=== PATIENT | male | born 1945 ===

== ENCOUNTER 2018-03-26 19:18 | Inpatient (IN) | payer MEDICARE ==
[~2018-03-26] VITALS: Ht 175.3 cm; Wt 70.2 kg
[~2018-03-26 19:18] MED LIST: ASCO1ER PO; Coumadin5 MG PO; DIAZ10 PO; DOC250 PO; DULO60 PO; FLAX PO; FURO40 PO; Garlic Oil1000 MG PO; LISI20 PO; LISI5 PO; MEDICAL MARIJUANA; MORP60ER PO; MULVITA PO; OXYACE10 PO; OXYC30; OXYC30ER PO; POTCHL10ER PO; PROB500 PO; RXOXYACE PO; WARF1 PO; WARF6 PO
[2018-03-26 21:16] LABS: BASOPHILS ABSOLUTE AUTO 0.07 K/mm3 (0.00-0.23); BASOPHILS PERCENT AUTO 1 % (0-2); EOSINOPHILS ABSOLUTE AUTO 0.22 K/mm3 (0.00-0.68); EOSINOPHILS PERCENT AUTO 3 % (0-6); Hemoglobin 13.8 g/dL (13.5-17.5); IMMATURE GRAN ABSOLUTE AUTO 0.02 K/mm3 (0.00-0.10); IMMATURE GRAN PERCENT AUTO 0 % (0-1); LYMPHOCYTES PERCENT AUTO 63 % (21-46); MONOCYTES ABSOLUTE AUTO 0.63 K/mm3 (0.16-1.47); MONOCYTES PERCENT AUTO 8 % (4-13); Mean Corpuscular HGB 31.4 pg (26.0-34.0); Mean Corpuscular HGB Conc 34.5 g/dL (31.5-36.5); Mean Corpuscular Volume 91 fL (80-100); Mean Platelet Volume 9.3 fL (9.1-12.4); NEUTROPHILS ABSOLUTE AUTO 2.04 K/mm3 (1.96-9.15); NEUTROPHILS PERCENT AUTO 25 % (41-73); NRBC ABSOLUTE 0.02 K/mm3 (0.00-0.02); NRBC Auto 0.3 /100 WBC (0.0-0.2); Platelet Count 162 K/mm3 (150-400); RDW Coefficient Variation 13.1 % (11.7-14.2); RDW Standard Deviation 44.6 fL (35.1-46.3); White Blood Cell Count 7.98 K/mm3 (4.00-11.30)
[2018-03-26 21:28] LABS: Bilirubin, Total 0.5 mg/dL (0.1-1.0); Bun/Creatinine Ratio 20.8 (12.0-20.0); Calcium, Blood 8.6 mg/dL (8.5-10.1); Creatinine, Blood 1.3 mg/dL (0.60-1.20); Globulin, Blood 4.1 g/dL (2.2-4.0); Potassium, Blood 3.4 mmol/L (3.5-5.5); Total Protein, Blood 8.1 g/dL (6.4-8.2)
[2018-03-26 21:33] LABS: International Normalized Ratio 3.13; Prothrombin Time Results 29.9 Sec (9.7-11.5)
--- NOTE | 2018-03-26 23:30 | NUR ---
PT ADMITTED FROM ED FOR L FEMUR FX. PT A&O X4. HYPERTENSIVE WITH BP AT 174/95. PAIN MANAGED WITH DILAUDID PER EMAR. ON 2 L OF O2. SATS STABLE ABOVE 95%. PT REPORTS BEING ON O2 AT HOME. NPO WITH NS RUNNING AT 75/HR.
--- NOTE | 2018-03-27 04:42 | NUR ---
PT CURRENTLY SLEEPING WITH BIPAP. HR DROPPING BETWEEN 40-45. PT BEING MONITORED FREQUENTLY. DR THOMAS NOTIFIED.
[2018-03-27 05:14] LABS: Hematocrit 37.6 % (37.0-53.0); Mean Corpuscular HGB 31.4 pg (26.0-34.0); Mean Corpuscular HGB Conc 34.6 g/dL (31.5-36.5); Mean Corpuscular Volume 91 fL (80-100); Mean Platelet Volume 8.9 fL (9.1-12.4); Platelet Count 130 K/mm3 (150-400); RDW Standard Deviation 42.8 fL (35.1-46.3); Red Blood Cell Count 4.14 M/mm3 (4.30-5.90); White Blood Cell Count 10.12 K/mm3 (4.00-11.30)
[2018-03-27 05:24] LABS: International Normalized Ratio 2.91
[2018-03-27 05:33] LABS: Bun/Creatinine Ratio 17.5 (12.0-20.0); Calcium, Blood 8.2 mg/dL (8.5-10.1); Creatinine, Blood 1.37 mg/dL (0.60-1.20); Potassium, Blood 4.3 mmol/L (3.5-5.5)
--- NOTE | 2018-03-27 11:25 | NUR ---
PATIENT TO ct VIA [facility]
--- NOTE | 2018-03-27 11:42 | NUR ---
RETURNED TO ROOM FROM ct
--- NOTE | 2018-03-27 16:44 | NUR ---
patient states he receives pain meds from dr odom for chronic pain. spoke with giovany at dr arellano and asked her to fax a list of patient meds.
[2018-03-27] MEDS ORDERED: Felodipine ER2.5 MG PO (17:23)
[2018-03-27] MEDS ORDERED: PROBIOTIC1 EAC1 PO (17:24)
[2018-03-27] MEDS ORDERED: COMBIVENT RESPIM4 GM (17:27)
[2018-03-27] MEDS ORDERED: ACET500 PO (17:28)
[2018-03-27] MEDS ORDERED: GLUCOSAMINE &1 EACH PO (17:29)
[2018-03-27] MEDS ORDERED: FEVERFEW EXTRACT1 GM PO ×2 (17:30→17:31)
[2018-03-27] MEDS ORDERED: OMEG1CAP30 PO (17:32)
[2018-03-27] MEDS ORDERED: Vitamin B-121000 MCG PO (17:33)
[2018-03-27] MEDS ORDERED: PROC5 PO (17:34)
--- NOTE | 2018-03-27 18:01 | NUR ---
PATIENT PAINUL THROUGHOUT SHIT. OBTAINED A LIST O PATIENTS MEDS ROM DR TREVA EUBANKS NOTIIED DR SPRING O NEW MED LIST. PATIENT ON BIPAP WHEN SLEEPING, CONT BIOX IN PLACE. PATIENT LEFT LE EXTERNALLY ROTATED, PEDAL PULSES INTACT. LET ELBOW RESING WITH SCANT BLOODY DRAINAGE KAR HEMPHILL RN
--- NOTE | 2018-03-27 18:21 | NUR ---
dr randall here to see patient
--- NOTE | 2018-03-27 19:49 | NUR ---
NURSING ENTERED ROOM AFTER PT YELLED, "A LITTLE HELP PLEASE!" WHEN ASKED WHY HE WAS YELLING HE STATED THAT HE NEEDED HIS URINAL EMPTIED. WHEN NURSING REITERATED THAT THIS DOES NOT CONSTITUE AN EMERGENCY AND TAT A SECOND URINAL WOULD BE PROVIDED FOR HIS USE HE STATED THAT HE UNDERSTOOD. WILL CONTINUE TO MONITOR.
--- NOTE | 2018-03-28 06:05 | NUR ---
LYING IN LOW FOWLERS WITH EYES CLOSED. PAIN IS MANAGED WITH CURRENT PAIN REGIEMEN. ABLE TO EXTEND TOME TO 1.5HRS CURRENTLY. REPOSITIONED Q2HRS, TOLERATING WELL. NO FURTHER CHANGES SINCE START OF SHIFT. SAFETY MEASURES IN PLACE. WILL GIVE HAND OFF TO ONCOMING SHIFT USING SBAR.
[2018-03-28 11:39] LABS: International Normalized Ratio 1.42; Prothrombin Time Results 14.6 Sec (9.7-11.5)
--- NOTE | 2018-03-28 11:42 | NUR ---
CONTACTED DR KAR HERNANDEZ WITH PT/INR RESULTS
--- NOTE | 2018-03-28 13:25 | NUR ---
TO OR PER BED
--- NOTE | 2018-03-28 13:29 | NUR ---
History, Chart, Medications and Allergies reviewed before start of procedure. Patient confirms NPO status and agrees with scheduled surgery.
--- NOTE | 2018-03-28 13:48 | NUR ---
Surgical site prepped with 2% Chlorhexidine cloth wipe.
--- NOTE | 2018-03-28 14:47 | NUR ---
03/28/18 1447 Doretha Delgado 0.5% BUPIVICAINE WITH EPI 1:200,000 USED. DOSING TO BE GIVEN AT END OF CASE. ANCEF [address] FIGUEROA AT 1356.
--- NOTE | 2018-03-28 16:38 | NUR ---
1630 returned to room let hip ressing dry an intact, patient able to move all extremities. patient reports pain t level 4/10
--- NOTE | 2018-03-28 17:46 | NUR ---
[address] henderson regarding patients elevated bp, new orders received
--- NOTE | 2018-03-28 18:12 | NUR ---
SHIFT SUMMARY PATIENT REPORTS LET HIP PAIN 06/14. HYDRALAZINE GIVEN OR ELEVATED BP. LEFT HIP DRESING DRY AND INTACT. PATIENT MOVES ALL EXTREMITIES, DENIES ANY NUMBNESS OR TINGLING O EXTREMITIES. PATIENT VOIDED CLEAR YELLOW URINE POST OP
--- NOTE | 2018-03-28 18:36 | NUR ---
BIOX 88% , OXYGEN INCREASED TO 4 LITERS, REQUESTED RESPIRATORY THERAPY PLACE PATIENT ON BIPAP
[2018-03-29 01:22] LABS: BASOPHILS ABSOLUTE AUTO 0.01 K/mm3 (0.00-0.23); BASOPHILS PERCENT AUTO 0 % (0-2); EOSINOPHILS ABSOLUTE AUTO 0.01 K/mm3 (0.00-0.68); EOSINOPHILS PERCENT AUTO 0 % (0-6); Hemoglobin 13.5 g/dL (13.5-17.5); IMMATURE GRAN ABSOLUTE AUTO 0.03 K/mm3 (0.00-0.10); IMMATURE GRAN PERCENT AUTO 0 % (0-1); LYMPHOCYTES ABSOLUTE AUTO 1.13 K/mm3 (0.84-5.20); LYMPHOCYTES PERCENT AUTO 9 % (21-46); MONOCYTES ABSOLUTE AUTO 0.97 K/mm3 (0.16-1.47); MONOCYTES PERCENT AUTO 8 % (4-13); Mean Corpuscular HGB 31.3 pg (26.0-34.0); Mean Corpuscular HGB Conc 35.5 g/dL (31.5-36.5); Mean Corpuscular Volume 88 fL (80-100); Mean Platelet Volume 9.1 fL (9.1-12.4); NEUTROPHILS ABSOLUTE AUTO 10.16 K/mm3 (1.96-9.15); NEUTROPHILS PERCENT AUTO 83 % (41-73); Platelet Count 111 K/mm3 (150-400); RDW Coefficient Variation 12.7 % (11.7-14.2); RDW Standard Deviation 41.2 fL (35.1-46.3); Red Blood Cell Count 4.32 M/mm3 (4.30-5.90); White Blood Cell Count 12.31 K/mm3 (4.00-11.30)
[2018-03-29 01:36] LABS: International Normalized Ratio 1.56; Prothrombin Time Results 15.9 Sec (9.7-11.5)
[2018-03-29 01:37] LABS: Anion Gap 9 mmol/L (6-16); Blood Urea Nitrogen 15 mg/dL (8-24); Bun/Creatinine Ratio 17.9 (12.0-20.0); CO2, Blood 30 mmol/L (21-32); Calcium, Blood 8.4 mg/dL (8.5-10.1); Chloride, Blood 90 mmol/L (98-108); Creatinine, Blood 0.84 mg/dL (0.60-1.20); Glomerular Filtration Rate >60 (60-); Glucose, Blood 145 mg/dL (70-99); Magnesium, Blood 1.6 mg/dL (1.6-2.4); Potassium, Blood 3.4 mmol/L (3.5-5.5); Sodium, Blood 129 mmol/L (136-145)
--- NOTE | 2018-03-29 06:28 | NUR ---
LYING IN LOW FOWLERS WITH EYES CLOSED. PAIN IS MANAGED WITH CURRENT PAIN REGIEMEN. ICE PLACED TO LEFT HIP AND CHANGED NEEDED THROUGHOUT SHIFT. NO FURTHER CHANGES SINCE START OF SHIFT. SAFETY MEASURES IN PLACE. WILL GIVE HAND OFF TO ONCOMING SHIFT USING SBAR.
--- NOTE | 2018-03-29 07:10 | NUR ---
recvd report from previous shift rn Tory, pt sleeping in bed, bed in lowest position, bed rails up, call light within reach
--- NOTE | 2018-03-29 17:17 | NUR ---
Pt is alert, oriented. Reports a pain level of 2/10, no anxiety, no shortness of breath. Reviewed purpose of POLST and advance directives. Supplied copies of both. He is very interested in hearing more about the forms, however, he requests time to rest at this time. Will return to pt's room tomorrow to discuss.
--- NOTE | 2018-03-29 18:26 | NUR ---
SHIFT SUMMARY: VSS, NO ACUTE CHANGES. PT REMAINED A/0 X 4, COOPERATIVE. PT WORKED WITH PHYSICAL THERAPY/OT X 2 TODAY, UP TO CHAIR FOR MEALS. PT ROUNDED ON BY JOSE MORFIN WILLIAMS THIS SHIFT. NEPHEW VISITED X 2 THIS SHIFT. PT NO N/V, URINE OUTPUT >500 ML THIS SHIFT. PT STATES HE DOES NOT LIKE THE HOSPITAL FOOD, EATS SMALL AMOUNTS. PT'S NEPHEW BROUGHT FOOD PT'S LIKES AT LUNCHTIME. CHANGED DRESSING SKIN TEAR ON L ARM THIS SHIFT.
--- NOTE | 2018-03-30 04:21 | NUR ---
SHIFT SUMMARY: PT POD 2 L FEMUR. PAIN MANAGED WITH 60 MG OF OXY, MORPHINE AND VALIUM PER EMAR. NPO FOR SCHED BRONCHOSCOPY THIS AM. HOLDING ALL MEDS EXCEPT SCHED BP MEDS. CAN HAVE FENTANYL FOR PAIN BEFORE PROCEDURE. DENIES N/V. USING URINAL AT BEDSIDE. NO CONCERNS AT THIS TIME.
[2018-03-30 05:57] LABS: BASOPHILS ABSOLUTE AUTO 0.03 K/mm3 (0.00-0.23); BASOPHILS PERCENT AUTO 0 % (0-2); EOSINOPHILS ABSOLUTE AUTO 0.21 K/mm3 (0.00-0.68); EOSINOPHILS PERCENT AUTO 2 % (0-6); Hematocrit 34.9 % (37.0-53.0); Hemoglobin 12.4 g/dL (13.5-17.5); IMMATURE GRAN ABSOLUTE AUTO 0.05 K/mm3 (0.00-0.10); IMMATURE GRAN PERCENT AUTO 0 % (0-1); LYMPHOCYTES ABSOLUTE AUTO 1.65 K/mm3 (0.84-5.20); LYMPHOCYTES PERCENT AUTO 13 % (21-46); MONOCYTES ABSOLUTE AUTO 1.53 K/mm3 (0.16-1.47); MONOCYTES PERCENT AUTO 12 % (4-13); Mean Corpuscular HGB 30.8 pg (26.0-34.0); Mean Corpuscular HGB Conc 35.5 g/dL (31.5-36.5); Mean Corpuscular Volume 87 fL (80-100); NEUTROPHILS ABSOLUTE AUTO 9.38 K/mm3 (1.96-9.15); NEUTROPHILS PERCENT AUTO 73 % (41-73); Platelet Count 122 K/mm3 (150-400); RDW Coefficient Variation 12.7 % (11.7-14.2); RDW Standard Deviation 40.5 fL (35.1-46.3); Red Blood Cell Count 4.02 M/mm3 (4.30-5.90); White Blood Cell Count 12.85 K/mm3 (4.00-11.30)
[2018-03-30 06:15] LABS: International Normalized Ratio 1.3; Prothrombin Time Results 13.5 Sec (9.7-11.5)
[2018-03-30 06:17] LABS: Anion Gap 7 mmol/L (6-16); Blood Urea Nitrogen 25 mg/dL (8-24); Bun/Creatinine Ratio 23.6 (12.0-20.0); CO2, Blood 31 mmol/L (21-32); Calcium, Blood 8.2 mg/dL (8.5-10.1); Chloride, Blood 90 mmol/L (98-108); Creatinine, Blood 1.06 mg/dL (0.60-1.20); Glomerular Filtration Rate >60 (60-); Glucose, Blood 114 mg/dL (70-99); Phosphorus, Blood 2.8 mg/dL (2.5-4.9); Potassium, Blood 3.4 mmol/L (3.5-5.5); Sodium, Blood 128 mmol/L (136-145)
--- NOTE | 2018-03-30 08:42 | NUR ---
PATIENT TO BRONCH PROCEDURE AT THIS TIME.
--- NOTE | 2018-03-30 08:59 | NUR ---
PT TRANSPORTED TO [facility]. AGREES WITH PLANNED PROCEDURE. MEDS ALLERGIES AND HX REVIEWED.
--- NOTE | 2018-03-30 09:06 | NUR ---
LUNG SOUNDS CLEAR.
--- NOTE | 2018-03-30 10:25 | NUR ---
PATIENT RETURNED TO ROOM AT THIS TIME. A&O. DENIES SORE THROAT, DIFFICULTY SWALLOWING SECRETIONS OR OTHER C/O. WILL CONT NPO X 2 HRS PER ORDER. PATIENT INFORMED.
--- NOTE | 2018-03-30 13:00 | NUR ---
IV R UPPER ARM FLUSHED, PATENT, SITE CLEAR.
--- NOTE | 2018-03-30 13:00 | NUR ---
PATIENT TOOK WATER PO, THEN LUNCH W/O DIFFICULTY OR C/O. CONT TO MONITOR.
--- NOTE | 2018-03-30 18:09 | NUR ---
SHIFT SUMMARY PATIENT W/O C/O SINCE RETURNING FROM BRONCHOSCOPY TODAY. SWALLOWS W/O DIFFICULTY OR S/SX OF ASPIRATION. UP TO CHAIR, WORKED WITH PT. STATES PAIN CONTROLLED WITH PO MEDS. DRESSING D&I. CIRC CHECKS WNL. VISITORS IN TO SEE. NO ACUTE CHANGES.
--- NOTE | 2018-03-31 04:02 | NUR ---
SHIFT SUMMARY: NO ACUTE CHANGES THIS SHIFT. POD #3 L FEMUR. PAIN MANAGED PER EMAR. PT VERY PLEASANT W/O COMPLAINTS. TRANSFERED FROM CHAIR TO BED WITH WALKER. TWO MOD ASSIST. DRINKING ADEQUATE PO FLUID, PRAVEEN DIET, AND VOIDING. URINAL AT BEDSIDE. NO CONCERNS AT THIS TIME.
[2018-03-31 05:31] LABS: BASOPHILS ABSOLUTE AUTO 0.04 K/mm3 (0.00-0.23); BASOPHILS PERCENT AUTO 1 % (0-2); EOSINOPHILS ABSOLUTE AUTO 0.37 K/mm3 (0.00-0.68); EOSINOPHILS PERCENT AUTO 4 % (0-6); Hematocrit 30.2 % (37.0-53.0); Hemoglobin 10.6 g/dL (13.5-17.5); IMMATURE GRAN ABSOLUTE AUTO 0.04 K/mm3 (0.00-0.10); IMMATURE GRAN PERCENT AUTO 1 % (0-1); LYMPHOCYTES ABSOLUTE AUTO 2.51 K/mm3 (0.84-5.20); LYMPHOCYTES PERCENT AUTO 28 % (21-46); MONOCYTES ABSOLUTE AUTO 1.03 K/mm3 (0.16-1.47); MONOCYTES PERCENT AUTO 12 % (4-13); Mean Corpuscular HGB Conc 35.1 g/dL (31.5-36.5); Mean Corpuscular Volume 88 fL (80-100); Mean Platelet Volume 9.2 fL (9.1-12.4); NEUTROPHILS ABSOLUTE AUTO 4.85 K/mm3 (1.96-9.15); NEUTROPHILS PERCENT AUTO 55 % (41-73); Platelet Count 120 K/mm3 (150-400); RDW Coefficient Variation 12.8 % (11.7-14.2); RDW Standard Deviation 41.5 fL (35.1-46.3); Red Blood Cell Count 3.42 M/mm3 (4.30-5.90); White Blood Cell Count 8.84 K/mm3 (4.00-11.30)
[2018-03-31 05:44] LABS: International Normalized Ratio 1.29; Prothrombin Time Results 13.4 Sec (9.7-11.5)
[2018-03-31 06:00] LABS: Albumin, Blood 2.6 g/dL (3.4-5.0); Anion Gap 8 mmol/L (6-16); Blood Urea Nitrogen 35 mg/dL (8-24); CO2, Blood 31 mmol/L (21-32); Calcium, Blood 7.6 mg/dL (8.5-10.1); Chloride, Blood 88 mmol/L (98-108); Creatinine, Blood 1.25 mg/dL (0.60-1.20); Glomerular Filtration Rate >60 (60-); Glucose, Blood 96 mg/dL (70-99); Phosphorus, Blood 3.2 mg/dL (2.5-4.9); Potassium, Blood 3.2 mmol/L (3.5-5.5); Sodium, Blood 127 mmol/L (136-145)
== END 2018-03-31 15:30 | DRG 481 ==
LOC: ER 19:18 → SURS 22:10
PROVIDERS: Internal Medicine; Internal Medicine Critical Care Medicine; Nurse Practitioner Acute Care; Orthopaedic Surgery; Physician Assistant; ADMIT Hospitalist
PROC: 5A09357 Assistance with Respiratory Ventilation, Less than 24 Consecutive Hours, Continuous Positive Airway Pressure (ICD-10-PCS; 2018-03-26)
PROC: 30233L1 Transfusion of Nonautologous Fresh Plasma into Peripheral Vein, Percutaneous Approach (ICD-10-PCS; 2018-03-28)
PROC: 0QH706Z Insertion of Intramedullary Internal Fixation Device into Left Upper Femur, Open Approach (ICD-10-PCS; principal; 2018-03-28 14:00)
PROC: 0BDB8ZX Extraction of Left Lower Lobe Bronchus, Via Natural or Artificial Opening Endoscopic, Diagnostic (ICD-10-PCS; 2018-03-30)
PROC: 0BBG8ZX Excision of Left Upper Lung Lobe, Via Natural or Artificial Opening Endoscopic, Diagnostic (ICD-10-PCS; 2018-03-30 09:00)
DX: S72.142A Displaced intertrochanteric fracture of left femur, initial encounter for closed fracture (principal); E87.1 Hypo-osmolality and hyponatremia; C34.02 Malignant neoplasm of left main bronchus; F11.20 Opioid dependence, uncomplicated; D69.6 Thrombocytopenia, unspecified; E87.6 Hypokalemia; D64.9 Anemia, unspecified; E78.5 Hyperlipidemia, unspecified; F17.210 Nicotine dependence, cigarettes, uncomplicated; J44.9 Chronic obstructive pulmonary disease, unspecified; I12.9 Hypertensive chronic kidney disease with stage 1 through stage 4 chronic kidney disease, or unspecified chronic kidney disease; N18.3 Chronic kidney disease, stage 3 (moderate); G89.29 Other chronic pain; M54.9 Dorsalgia, unspecified; Z86.718 Personal history of other venous thrombosis and embolism; Z79.01 Long term (current) use of anticoagulants; G47.33 Obstructive sleep apnea (adult) (pediatric); Z96.641 Presence of right artificial hip joint; I73.9 Peripheral vascular disease, unspecified; W01.0XXA Fall on same level from slipping, tripping and stumbling without subsequent striking against object, initial encounter; E86.0 Dehydration; R09.02 Hypoxemia
CPT/HCPCS: 36415; 36430; 71045; 71260; 73502; 73700; 80048; 80053; 80069; 83735; 85025; 85027; 85610; 86850; 86900; 86901; 87070; 87077; 87186; 87205; 88108; 88305; 88341; 88342; 93005; 93010; 94660; 94762; 96374; 96376; 97110; 97116; 97162; 97166; 97530; 97535; 99285-25; C1713; J0360; J0690; J1100; J1170; J2250; J2405; J3010; J7030; J7120; P9059; Q9967

== ENCOUNTER 2018-05-15 16:17 | Inpatient (IN) | payer MEDICARE ==
[~2018-05-15] VITALS: Ht 175.3 cm; Wt 76.9 kg
[~2018-05-15 16:17] MED LIST changes: -ASCO1ER PO; +COMBIVENT RESPIM4 GM; -DIAZ10 PO; -DOC250 PO; -DULO60 PO; +FEVERFEW EXTRACT1 GM PO; -FLAX PO; -FURO40 PO; +Felodipine ER2.5 MG PO; -Garlic Oil1000 MG PO; -MEDICAL MARIJUANA; -MULVITA PO; -OXYC30; +OXYC30 PO; -POTCHL10ER PO; +WARF5 PO; -WARF6 PO
[2018-05-15 20:35] LABS: Hemoglobin 11.7 g/dL (13.5-17.5); Mean Corpuscular HGB 32.1 pg (26.0-34.0); Mean Corpuscular HGB Conc 34.4 g/dL (31.5-36.5); Mean Corpuscular Volume 93 fL (80-100); NRBC ABSOLUTE 0.05 K/mm3 (0.00-0.02); NRBC Auto 0.1 /100 WBC (0.0-0.2); RDW Coefficient Variation 15.5 % (11.7-14.2); RDW Standard Deviation 52.2 fL (35.1-46.3); Red Blood Cell Count 3.65 M/mm3 (4.30-5.90); White Blood Cell Count 37.57 K/mm3 (4.00-11.30)
[2018-05-15 20:40] LABS: Mean Platelet Volume 9.7 fL (9.1-12.4); Platelet Count 139 K/mm3 (150-400)
[2018-05-15 20:43] LABS: Alanine Aminotransfer (ALT/SGP 25 U/L (12-78); Albumin, Blood 3.6 g/dL (3.4-5.0); Albumin/Globulin Ratio 0.9 (0.8-1.8); Alk Phos 200 U/L (50-136); Anion Gap 9 mmol/L (6-16); Aspartate Aminotrans (AST/SGOT 20 U/L (12-37); Bilirubin, Total 0.9 mg/dL (0.1-1.0); Blood Urea Nitrogen 23 mg/dL (8-24); Bun/Creatinine Ratio 27.4 (12.0-20.0); CO2, Blood 27 mmol/L (21-32); Calcium, Blood 8.4 mg/dL (8.5-10.1); Chloride, Blood 85 mmol/L (98-108); Creatinine, Blood 0.84 mg/dL (0.60-1.20); Globulin, Blood 3.8 g/dL (2.2-4.0); Glomerular Filtration Rate >60 (60-); Glucose, Blood 103 mg/dL (70-99); Sodium, Blood 121 mmol/L (136-145); Total Protein, Blood 7.4 g/dL (6.4-8.2); Troponin I <0.015 ng/mL (0.000-0.040)
[2018-05-15 21:06] LABS: BAND PERCENT MAN 1 % (0-8); BASOPHILS ABSOLUTE MAN 0.37 K/mm3 (0.00-0.23); BASOPHILS PERCENT MAN 1 % (0-2); EOSINOPHILS PERCENT MAN 0 % (0-6); LYMPHOCYTES ABSOLUTE MAN 7.13 K/mm3 (0.84-5.20); LYMPHOCYTES PERCENT MAN 19 % (21-46); MONOCYTES ABSOLUTE MAN 0.75 K/mm3 (0.16-1.47); MONOCYTES PERCENT MAN 2 % (4-13); SEG NEUTROPHILS PERCENT MAN 77 % (41-73); TOTAL CELLS COUNTED 100
[2018-05-15 21:20] LABS: International Normalized Ratio 2.4; Prothrombin Time Results 23.5 Sec (9.7-11.5)
[2018-05-16 05:56] LABS: EOSINOPHILS ABSOLUTE AUTO 0.02 K/mm3 (0.00-0.68); EOSINOPHILS PERCENT AUTO 0 % (0-6); Hematocrit 29.1 % (37.0-53.0); Hemoglobin 10.3 g/dL (13.5-17.5); Mean Corpuscular HGB 32.6 pg (26.0-34.0); Mean Corpuscular HGB Conc 35.4 g/dL (31.5-36.5); Mean Corpuscular Volume 92 fL (80-100); Mean Platelet Volume 8.5 fL (9.1-12.4); Platelet Count 168 K/mm3 (150-400); RDW Coefficient Variation 14.9 % (11.7-14.2); RDW Standard Deviation 50.3 fL (35.1-46.3); Red Blood Cell Count 3.16 M/mm3 (4.30-5.90); White Blood Cell Count 22.29 K/mm3 (4.00-11.30)
[2018-05-16 06:02] LABS: BASOPHILS ABSOLUTE AUTO 0.05 K/mm3 (0.00-0.23); BASOPHILS PERCENT AUTO 0 % (0-2); IMMATURE GRAN ABSOLUTE AUTO 0.78 K/mm3 (0.00-0.10); IMMATURE GRAN PERCENT AUTO 4 % (0-1); LYMPHOCYTES ABSOLUTE AUTO 2.69 K/mm3 (0.84-5.20); LYMPHOCYTES PERCENT AUTO 12 % (21-46); MONOCYTES ABSOLUTE AUTO 0.23 K/mm3 (0.16-1.47); MONOCYTES PERCENT AUTO 1 % (4-13); NEUTROPHILS ABSOLUTE AUTO 18.52 K/mm3 (1.96-9.15); NEUTROPHILS PERCENT AUTO 83 % (41-73)
[2018-05-16] MEDS ORDERED: NIFE30ER PO (12:26)
[2018-05-16] MEDS ORDERED: ASCO500 PO (14:14)
[2018-05-16] MEDS ORDERED: WARF2.5 PO (14:20)
[2018-05-16] MEDS ORDERED: WARF3 PO (14:20)
[2018-05-16] MEDS ORDERED: DULO60 PO (14:22)
[2018-05-16] MEDS ORDERED: POTCHL10ER PO (14:23)
[2018-05-16] MEDS ORDERED: FURO20 PO (14:23)
[2018-05-16] MEDS ORDERED: DIAZ5 PO (14:24)
[2018-05-16] MEDS ORDERED: DOC250 PO (14:25)
[2018-05-16] MEDS ORDERED: ONE DAILY COMP1 EACH PO (14:26)
[2018-05-16] MEDS ORDERED: MEDICAL MARIJUANA (14:27)
[2018-05-16] MEDS ORDERED: FLAX PO (14:29)
[2018-05-16] MEDS ORDERED: Garlic Oil1000 MG PO (14:30)
[2018-05-16] MEDS ORDERED: PROBIOTIC1 EAC1 PO (14:30)
[2018-05-16] MEDS ORDERED: OMEG1CAP30 PO (14:31)
[2018-05-16] MEDS ORDERED: GLUCOSAMINE &1 EACH PO (14:31)
[2018-05-16] MEDS ORDERED: PROC5 PO (14:32)
[2018-05-16] MEDS ORDERED: Vitamin B-121000 MCG PO (14:32)
[2018-05-16] MEDS ORDERED: FEVERFEW EXTRACT1 GM PO (14:33)
[2018-05-16] MEDS ORDERED: ACET500 PO (14:34)
[2018-05-16] MEDS ORDERED: CALCIUM PO (14:35)
[2018-05-16] MEDS ORDERED: MAGNESIUM PO (14:35)
[2018-05-16] MEDS ORDERED: ZINC PO (14:35)
[2018-05-16] MEDS ORDERED: ETOPOSIDE (14:36)
[2018-05-16] MEDS ORDERED: CISPLATIN (14:37)
--- NOTE | 2018-05-16 16:31 | NUR ---
Initial Visit: Palliative Care Consult for Advanced Care Planning. Pt is A&Ox4 and reports 5/10 pain in his lower back. He reports recently receiving pain medication and pain intensity is decreasing. He reports current regimen is managing his pain. Pt denies SOB, anxiety, and depression at this time. Engaged in therapeutic conversation regarding goals of care. Pt lives at home with his nephew Pankaj. Pt states Pankaj does most of the meal prep other [place] Pt is independent. Pt reports that he uses a 4 wheeled walker with ambulation other [place] no restrictions. Confirmed Pt's wishes based off current POLST on file and Pt reports this is correct. Current POLST states CPR, Full Code, and No Artificial Nutrition by Tube. Discussion was made with Pt regarding his cancer and other comorbidities. Pt reports his Oncologist is optomistic and feels his cancer can be cured. Discussed treatment of his COPD and HTN and Pt reports that he is following his PCP's recommendation and taking his medications as prescribed. Pt reports no concerns at this time. Spoke with Pt's ED nurse Lalita and she reports concern that Pt is not receiving the same frequency of pain medication as he takes at home. No other concerns reported at this time. Plan: Will remain available for symptom management if needed. Currently Pt reports his pain is managed with current regimen.
[2018-05-17 03:48] LABS: BASOPHILS PERCENT AUTO 1 % (0-2); EOSINOPHILS PERCENT AUTO 0 % (0-6); Hematocrit 31.9 % (37.0-53.0); Hemoglobin 11.1 g/dL (13.5-17.5); IMMATURE GRAN ABSOLUTE AUTO 0.18 K/mm3 (0.00-0.10); IMMATURE GRAN PERCENT AUTO 2 % (0-1); LYMPHOCYTES ABSOLUTE AUTO 0.64 K/mm3 (0.84-5.20); LYMPHOCYTES PERCENT AUTO 5 % (21-46); MONOCYTES ABSOLUTE AUTO 0.14 K/mm3 (0.16-1.47); MONOCYTES PERCENT AUTO 1 % (4-13); Mean Corpuscular HGB 32.2 pg (26.0-34.0); Mean Corpuscular HGB Conc 34.8 g/dL (31.5-36.5); Mean Corpuscular Volume 93 fL (80-100); Mean Platelet Volume 8.6 fL (9.1-12.4); NEUTROPHILS ABSOLUTE AUTO 10.87 K/mm3 (1.96-9.15); NEUTROPHILS PERCENT AUTO 91 % (41-73); Platelet Count 167 K/mm3 (150-400); RDW Standard Deviation 50.9 fL (35.1-46.3); Red Blood Cell Count 3.45 M/mm3 (4.30-5.90); White Blood Cell Count 11.93 K/mm3 (4.00-11.30)
[2018-05-17 04:04] LABS: Anion Gap 10 mmol/L (6-16); Blood Urea Nitrogen 22 mg/dL (8-24); Bun/Creatinine Ratio 28.8 (12.0-20.0); CO2, Blood 23 mmol/L (21-32); Calcium, Blood 8.6 mg/dL (8.5-10.1); Chloride, Blood 95 mmol/L (98-108); Creatinine, Blood 0.76 mg/dL (0.60-1.20); Glomerular Filtration Rate >60 (60-); Glucose, Blood 146 mg/dL (70-99); International Normalized Ratio 1.64; Potassium, Blood 4.3 mmol/L (3.5-5.5); Prothrombin Time Results 16.6 Sec (9.7-11.5); Sodium, Blood 128 mmol/L (136-145)
[2018-05-17 04:05] LABS: Vancomycin, Trough 14.1 ug/mL (5.0-10.0)
--- NOTE | 2018-05-17 07:28 | NUR ---
worried about air born desease, infusing abx when walking rounds completed with day staff, call light in reach, room air
[2018-05-17] MEDS ORDERED: PRED10 PO (14:01)
--- NOTE | 2018-05-17 14:24 | NUR ---
PT DISCHARGED PT DISCHARGED AT 1415. PT IN STABLE CONDITION WITH VSS. PT & NEPHEW EDUCATED ON DC INSTRUCTIONS & MED CHANGES. PT WHEELED OUT & DRIVEN HOME BY NEPHEW. NEW MEDS FAXED TO [facility] IN [place]. IV REMOVED & INTACT.
== END 2018-05-17 14:20 | disposition home or self-care (01) | DRG 204 ==
LOC: ER 16:17 → MEDS 05-16 00:07 → ERHOLD 05-16 00:07 → MEDS 05-16 18:25
PROVIDERS: Emergency Medicine; Hospitalist; ADMIT Hospitalist
DX: R04.2 Hemoptysis (principal); C34.92 Malignant neoplasm of unspecified part of left bronchus or lung; E87.1 Hypo-osmolality and hyponatremia; Z79.01 Long term (current) use of anticoagulants; Z90.49 Acquired absence of other specified parts of digestive tract; F17.210 Nicotine dependence, cigarettes, uncomplicated; I10 Essential (primary) hypertension; E78.5 Hyperlipidemia, unspecified; J44.9 Chronic obstructive pulmonary disease, unspecified; G47.33 Obstructive sleep apnea (adult) (pediatric); E86.1 Hypovolemia; Z86.718 Personal history of other venous thrombosis and embolism; T45.515A Adverse effect of anticoagulants, initial encounter; Y92.9 Unspecified place or not applicable
CPT/HCPCS: 36415; 71260; 80048; 80053; 80202; 84145; 84484; 85025; 85610; 96361-59; 96374-59; 96375-59; 96376-59; 99285-25; J0692; J2920; J3370; J7030; J7050; Q9967

== ENCOUNTER 2019-01-19 06:52 | Day surgery (SDC) | payer MEDICARE ==
[~2019-01-19] VITALS: Ht 175.3 cm; Wt 76.2 kg
[~2019-01-19 06:52] MED LIST changes: +ACET500 PO; +ASCO500 PO; +CALCIUM PO; +CENTRUM SILVER; +CISPLATIN; +COMPAZINE10 MG PO; +DIAZ5 PO; +DIAZEPAM; +DOC250; +DOC250 PO; +DULO60 PO; +ETOPOSIDE; +FLAX OIL1000 MG PO; +FLAX PO; +FURO20 PO; +FURO40 PO; +GLUCOSAMINE &1 EACH PO; +Garlic Oil1000 MG PO; +Garlic1 EAC1 PO; +Glucosamine &1 EACH PO; +Klor-Con 1010 MEQ PO; +MAGNESIUM PO; +MEDICAL MARIJUANA; +NIFE30ER PO; +OMEG1CAP30 PO; +OMEGA 3; +ONE DAILY COMP1 EACH PO; +POTCHL10ER PO; +PRED10 PO; +PROBIOTIC1 EAC1 PO; +PROC5 PO; +Vitamin B-121000 MCG PO; +WARF2.5 PO; +WARF3 PO; +ZINC PO
--- NOTE | 2019-01-19 07:55 | NUR ---
PT ADMITTED TO [facility]. AGREES WITH PLANNED SURGERY. DR. LAN AND DR. SAMANIEGO IN TO SEE PT. PLATELETS LOW AND BOTH SPOKE WITH PT ABOUT TRANSFUSION. PT AGREES.
--- NOTE | 2019-01-19 10:44 | NUR ---
Patient up to Ambulate independently. Gait steady [facility]. Discharge instructions reviewed with patient. Patient verbalizes understanding. Copy given to patient to take home. Discharged via wheelchair to private car for ride home WITH NEPHEW.
== END 2019-01-19 23:52 | disposition home or self-care (01) ==
LOC: ORSCMMR 06:52 → ORD 10:45 → ORSCMMR 10:45
PROVIDERS: Surgery
PROC: 0JH60WZ Insertion of Totally Implantable Vascular Access Device into Chest Subcutaneous Tissue and Fascia, Open Approach (ICD-10-PCS; principal; 2019-01-19 08:30)
DX: C34.12 Malignant neoplasm of upper lobe, left bronchus or lung (principal); I10 Essential (primary) hypertension; D47.3 Essential (hemorrhagic) thrombocythemia; G47.33 Obstructive sleep apnea (adult) (pediatric); Z79.899 Other long term (current) drug therapy
CPT/HCPCS: 36430; 77001; 86900; 86901; C1788; J0690; J1642; J2704; J3010; J7120; P9037

== ENCOUNTER 2019-08-15 04:07 | Emergency (ER) | payer MEDICARE ==
[~2019-08-15] VITALS: Ht 175.3 cm; Wt 80.7 kg
== END 2019-08-15 04:48 | disposition home or self-care (01) ==
LOC: ER 04:07
DX: S81.812A Laceration without foreign body, left lower leg, initial encounter (principal); I10 Essential (primary) hypertension; E78.5 Hyperlipidemia, unspecified; F32.9 Major depressive disorder, single episode, unspecified; J44.9 Chronic obstructive pulmonary disease, unspecified; G47.33 Obstructive sleep apnea (adult) (pediatric); Z88.6 Allergy status to analgesic agent; Z88.5 Allergy status to narcotic agent; Z88.8 Allergy status to other drugs, medicaments and biological substances; Z88.7 Allergy status to serum and vaccine; Z79.899 Other long term (current) drug therapy; Z87.891 Personal history of nicotine dependence; W26.8XXA Contact with other sharp object(s), not elsewhere classified, initial encounter
CPT/HCPCS: 12004; 99282

== ENCOUNTER 2019-11-09 13:35 | Emergency (ER) | payer MEDICARE ==
[~2019-11-09] VITALS: Ht 162.6 cm; Wt 65.8 kg
[2019-11-09 15:56] LABS: Source, Urine Catheter
[2019-11-09 15:58] LABS: Appearance, Urine Clear (Clear); Bilirubin, Urine Neg (Neg); Blood, Urine Neg (Neg); Color, Urine Yellow (P-Yellow); Glucose Qualitative, Urine Neg (Neg); Ketones, Urine 1+ (Neg); Leukocyte Esterase, Urine Neg (Neg); Nitrite, Urine Neg (Neg); Protein, Urine Neg (Neg); Urobilinogen, Urine NORM (Normal)
--- NOTE | 2019-11-09 18:01 | NUR ---
Pt to ER for increasing pain and symptoms. Pt having deep abdominal pain and crying out that he needs to void. pt has ingunal hernia and some edema noted. pt state hea has a headache and his mouth is very sore. pt has a/a of thrush and stomitsis. Pt has multiple wounds to his legs and coxyx. He has been needing frequent Dressing changes. Call into [facility] to assist physician with plan of care. pt bladderscanned and over 400 ml noted of urine. Nursing placed paul catheter with approximatley 300 dark [place] urine out. Sample sent. Assited nursing with dressing change to coxyx and legs. Extra dressing sent to assit hospice nurse with getting them through the weekend. Theraputic time with pt he asked me to sit with him. Did oral care and some cleaning and skin care.pt states he has had great difficulty sleeping. He drifts off mid sentence and then awakes aggitated. Spoke with hospice nurse Jaren regarding plan of care and possblie return to home and preserving hospice. pt will return via gurney . Spoke with his nephew who has great caregiver stress. Supportive conversation he asked if pt is eminent. Advised hse is progressing and reviewed aggitation and the mental and emotional expressions of his uncle was expressing. Reviewed so startegies of support and possible using chaplian services to help his caregiver who is family with stress. Review prn medicationa dn calling for assitance an medicating. pt discharged back home.
== END 2019-11-09 18:50 | disposition home or self-care (01) ==
LOC: ER 13:35
PROVIDERS: Emergency Medicine
DX: R33.9 Retention of urine, unspecified (principal); Z51.5 Encounter for palliative care; L89.899 Pressure ulcer of other site, unspecified stage; Z79.899 Other long term (current) drug therapy
CPT/HCPCS: 51702; 81003; 99284-25